=== PATIENT | female | born 1990 | race Caucasian/White ===

== ENCOUNTER 2020-02-04 01:33 | Inpatient (IN) | payer OTHER ==
[~2020-02-04] VITALS: Ht 160 cm; Wt 81.6 kg
[2020-02-04] MEDS ORDERED: FERR-252 PO (02:39)
[2020-02-04] MEDS ORDERED: LACTATED RINGERS 1,000 ML IV SCH (02:51)
[2020-02-04] MEDS ORDERED: CLINDAMYCIN 900 MG in DEXTROSE 5% 100 ML IV ONE (02:55)
[2020-02-04 03:23] LABS: APPEARANCE,URINE CLEAR (CLEAR); BILIRUBIN,URINE NEGATIVE (NEGATIVE); BLOOD, URINE 3+ (NEGATIVE); COLOR,URINE YELLOW (YELLOW); LEUKOCYTE ESTERASE ,URINE 2+ (NEGATIVE); NITRITE, URINE NEGATIVE (NEGATIVE); PH,URINE 6.5 (5.0-9.0); UGLUCOSE NEGATIVE (NEGATIVE)
[2020-02-04 03:32] LABS: BASOPHILS % (AUTO) 0.8 % (0.0-2.0); EOSINOPHILS % (AUTO) 0.5 % (0.0-4.0); HEMATOCRIT 30.7 % (36-48); HEMOGLOBIN 9.7 g/dL (12.0-16.0); LYMPHOCYTES # (AUTO) 1.2 K/uL (2.5-16.5); LYMPHOCYTES % (AUTO) 22.4 % (20.5-51.1); MEAN CORPUSCULAR HEMOGLOBIN 25 pg (27-31); MEAN CORPUSCULAR HGB CONC 32 g/dL (33-37); MEAN CORPUSCULAR VOLUME 79.2 fL (80-94); MONOCYTES # (AUTO) 0.3 K/uL (0.8-1.0); MONOCYTES % (AUTO) 6.3 % (1.7-9.3); NEUTROPHILS # (AUTO) 3.8 K/uL (1.8-7.7); PLATELET COUNT (AUTO) 83 K/uL (140-450); RED BLOOD CELL COUNT(AUTO) 3.88 MIL/uL (4.20-5.40); RED CELL DISTRIBUTION WIDTH 16.7 % (11.6-13.7); WHITE BLOOD COUNT (AUTO) 5.4 K/uL (4.8-10.8)
[2020-02-04 03:45] LABS: ALBUMIN 1.9 g/dL (3.4-5.0); ANION GAP 13.3 (8-16); CARBON DIOXIDE 23.5 mmol/L (21-32); CREATININE 0.8 mg/dL (0.6-1.3); POTASSIUM 3.8 mmol/L (3.5-5.1); TOTAL BILIRUBIN 0.4 mg/dL (0.0-1.0)
[2020-02-04 04:04] LABS: RBC,URINE 11-20 (MOD) /HPF (0-5)
[2020-02-04] MEDS ORDERED: CITRIC ACID/SODIUM CITRATE 30 ML UDC PO ONE (04:10)
[2020-02-04] MEDS ORDERED: CLINDAMYCIN 900 MG in DEXTROSE 5% 100 ML IV SCH (07:59)
[2020-02-04] MEDS ORDERED: MORPHINE SULFATE 10 MG/ML VIAL ONE (08:40)
[2020-02-04] MEDS ORDERED: MORPHINE SULFATE 10 MG/ML VIAL IVP PRN (08:40)
[2020-02-04 08:48] VITALS: BP 126/77
--- NOTE | 2020-02-04 08:52 | NUR ---
PATIENT HAS BEEN SCREENED AND CATEGORIZED LOW NUTRITION RISK. PATIENT WILL BE SEEN WITHIN 7 DAYS OF ADMISSION. 02/10/[address]
[2020-02-04 10:15] LABS: BASOPHILS % (AUTO) 0.5 % (0.0-2.0); EOSINOPHILS % (AUTO) 0.6 % (0.0-4.0); HEMOGLOBIN 9.4 g/dL (12.0-16.0); LYMPHOCYTES # (AUTO) 1.3 K/uL (2.5-16.5); LYMPHOCYTES % (AUTO) 22.4 % (20.5-51.1); MEAN CORPUSCULAR HEMOGLOBIN 25 pg (27-31); MEAN CORPUSCULAR HGB CONC 31 g/dL (33-37); MEAN CORPUSCULAR VOLUME 79.1 fL (80-94); MONOCYTES # (AUTO) 0.3 K/uL (0.8-1.0); MONOCYTES % (AUTO) 5.2 % (1.7-9.3); NEUTROPHILS # (AUTO) 4.2 K/uL (1.8-7.7); NEUTROPHILS % (AUTO) 71.3 % (42.2-75.2); RED CELL DISTRIBUTION WIDTH 16.7 % (11.6-13.7); WHITE BLOOD COUNT (AUTO) 5.9 K/uL (4.8-10.8)
[2020-02-04 10:35] LABS: PLATELET COUNT (AUTO) 87 K/uL (140-450)
[2020-02-04 10:38] LABS: ALBUMIN 1.8 g/dL (3.4-5.0); CARBON DIOXIDE 21.6 mmol/L (21-32); CREATININE 0.7 mg/dL (0.6-1.3); POTASSIUM 3.6 mmol/L (3.5-5.1); TOTAL BILIRUBIN 0.4 mg/dL (0.0-1.0)
[2020-02-04] MEDS ORDERED: MORPHINE PRES FREE 10 MG/10 ML AMP IV ONE ×2 (11:20→11:30)
[2020-02-04] MEDS ORDERED: CITRIC ACID/SODIUM CITRATE 30 ML UDC ONE (11:21)
[2020-02-04] MEDS ORDERED: ONDANSETRON 4 MG/2 ML VIAL ONE (11:30)
[2020-02-04] MEDS ORDERED: METOCLOPRAMIDE 10 MG/2 ML INJ VIAL ONE (11:30)
[2020-02-04] MEDS ORDERED: DEXAMETHASONE 4 MG/ML VIAL ONE (11:30)
[2020-02-04] MEDS ORDERED: OXYTOCIN 20 UNITS in LACTATED RINGERS 1,000 ML IV SCH (12:03)
[2020-02-04] MEDS ORDERED: TEMAZEPAM 15 MG CAP PO PRN (12:05)
[2020-02-04] MEDS ORDERED: KETOROLAC 30 MG/ML VIAL IVP PRN (12:05)
[2020-02-04] MEDS ORDERED: METHYLERGONOVINE 0.2 MG/ML AMP IM PRN (12:05)
[2020-02-04] MEDS ORDERED: IBUPROFEN 800 MG TAB PO PRN (12:05)
[2020-02-04] MEDS ORDERED: NALOXONE 0.4 MG/ML VIAL IVP PRN ×3 (16:40)
[2020-02-04] MEDS ORDERED: KETOROLAC 60 MG/2 ML VIAL IM PRN (16:45)
[2020-02-04] MEDS ORDERED: ONDANSETRON 4 MG/2 ML VIAL IVP PRN (16:45)
[2020-02-05] MEDS ORDERED: OXYTOCIN 20 UNITS/LR PREMIX 1,000 ML IV ONE (04:38)
[2020-02-05 06:40] LABS: HEMATOCRIT 21.7 % (36-48); MEAN CORPUSCULAR HGB CONC 32 g/dL (33-37); MONOCYTES # (AUTO) 0.5 K/uL (0.8-1.0); PLATELET COUNT (AUTO) 74 K/uL (140-450)
[2020-02-05 06:48] LABS: BASOPHILS % (AUTO) 0.5 % (0.0-2.0); EOSINOPHILS % (AUTO) 0.1 % (0.0-4.0); LYMPHOCYTES # (AUTO) 1.7 K/uL (2.5-16.5); LYMPHOCYTES % (AUTO) 24.5 % (20.5-51.1); MEAN CORPUSCULAR HEMOGLOBIN 25 pg (27-31); MEAN CORPUSCULAR VOLUME 79.3 fL (80-94); MONOCYTES % (AUTO) 7.1 % (1.7-9.3); NEUTROPHILS # (AUTO) 4.7 K/uL (1.8-7.7); NEUTROPHILS % (AUTO) 67.8 % (42.2-75.2); RED BLOOD CELL COUNT(AUTO) 2.74 MIL/uL (4.20-5.40); RED CELL DISTRIBUTION WIDTH 16.6 % (11.6-13.7)
[2020-02-05] MEDS: HYDROcodone/APAP 5/325 MG 1 TAB TAB PO PRN ×3 (08:20→22:46)
[2020-02-05] MEDS: SIMETHICONE 80 MG TAB.CHEW PO PRN ×2 (08:20→13:04)
[2020-02-05] MEDS: DOCUSATE SOD/SENNA 50/8.6 MG 1 TAB PO SCH (21:25)
[2020-02-06] MEDS: HYDROcodone/APAP 5/325 MG 1 TAB TAB PO PRN (04:49)
[2020-02-06] MEDS: SIMETHICONE 80 MG TAB.CHEW PO PRN ×3 (09:32→17:58)
[2020-02-06] MEDS: oxyCODONE/APAP 5/325 MG 1 TAB TAB PO PRN ×3 (12:34→22:09)
[2020-02-06] MEDS: SODIUM PHOSPHATE 118 ML ENEM RC SCH (14:47)
[2020-02-06] MEDS: DOCUSATE SOD/SENNA 50/8.6 MG 1 TAB PO SCH (21:04)
[2020-02-07] MEDS ORDERED: CAMERA MC ONE (01:29)
[2020-02-07] MEDS: oxyCODONE/APAP 5/325 MG 1 TAB TAB PO PRN ×2 (03:29→13:14)
[2020-02-07] MEDS: SODIUM PHOSPHATE 118 ML ENEM RC SCH (09:00)
== END 2020-02-07 14:11 | disposition home or self-care (01) | DRG 540 ==
LOC: OBSVTOIN 01:33 → MLD 01:33 → MFCC 11:40
PROVIDERS: ADMIT Obstetrics & Gynecology; ATTEND Obstetrics & Gynecology
PROC: 10D00Z1 Extraction of Products of Conception, Low, Open Approach (ICD-10-PCS; principal; 2020-02-04 07:45)
DX: O99.12 Other diseases of the blood and blood-forming organs and certain disorders involving the immune mechanism complicating childbirth (principal); D69.6 Thrombocytopenia, unspecified; O34.211 Maternal care for low transverse scar from previous cesarean delivery; Z37.0 Single live birth; Z3A.38 38 weeks gestation of pregnancy; Z88.0 Allergy status to penicillin
CPT/HCPCS: 36415; 80053; 81001; 85025; 86592; 86886; 86900; 86901; 87086; J1100; J2270; J2405; J2590; J2765; J3490; J7060; J7120

== ENCOUNTER 2020-04-20 22:45 | Emergency (ER) | payer OTHER ==
[~2020-04-20] VITALS: Ht 160 cm; Wt 72.6 kg
[~2020-04-20 22:45] MED LIST: FERR-252 PO
[2020-04-20 23:15] VITALS: BP 135/82
--- NOTE | 2020-04-20 23:22 | NUR ---
PT IN TENT
--- NOTE | 2020-04-20 23:44 | NUR ---
PT AMBULATED TO BED 7 WTIH STEADY GAIT
[2020-04-21 00:01] LABS: BASOPHILS % (AUTO) 0.3 % (0.0-2.0); EOSINOPHILS % (AUTO) 0.3 % (0.0-4.0); HEMATOCRIT 30.1 % (36-48); HEMOGLOBIN 9.2 g/dL (12.0-16.0); LYMPHOCYTES # (AUTO) 1.3 K/uL (2.5-16.5); LYMPHOCYTES % (AUTO) 11.2 % (20.5-51.1); MEAN CORPUSCULAR HEMOGLOBIN 22 pg (27-31); MEAN CORPUSCULAR HGB CONC 31 g/dL (33-37); MEAN CORPUSCULAR VOLUME 72.5 fL (80-94); MONOCYTES # (AUTO) 0.5 K/uL (0.8-1.0); MONOCYTES % (AUTO) 4.4 % (1.7-9.3); NEUTROPHILS # (AUTO) 9.4 K/uL (1.8-7.7); NEUTROPHILS % (AUTO) 83.8 % (42.2-75.2); PLATELET COUNT (AUTO) 270 K/uL (140-450); RED BLOOD CELL COUNT(AUTO) 4.15 MIL/uL (4.20-5.40); RED CELL DISTRIBUTION WIDTH 16.8 % (11.6-13.7); WHITE BLOOD COUNT (AUTO) 11.2 K/uL (4.8-10.8)
--- NOTE | 2020-04-21 00:20 | NUR ---
ULTRASOUND AT BEDSIDE
[2020-04-21 00:22] LABS: ANION GAP 13.4 (8-16); CREATININE 0.9 mg/dL (0.6-1.3); POTASSIUM 3.4 mmol/L (3.5-5.1)
[2020-04-21 00:23] LABS: ALBUMIN 3.9 g/dL (3.4-5.0); TOTAL BILIRUBIN 0.4 mg/dL (0.0-1.0)
--- NOTE | 2020-04-21 00:36 | NUR ---
PT STARTED HAVING RLQ PAIN THIS EVENING AND DEVELOPED A FEVER OF 101.5 AT HOME. DENIES N/V/D. NO REBOUND PAIN. ABD TENDER TO PALPATION. BED IN LOWEST POSITION AND SIDE RAIL UP X 1 ALLERGY - PCN NO MEDICAL HX
[2020-04-21] MEDS ORDERED: KETOROLAC 15 MG/ML VIAL IVP ONE (01:00)
--- NOTE | 2020-04-21 01:31 | NUR ---
PT STATES PAIN 3/10 AFTER MED, CURRENTLY AFEBRILE (TEMP 98.1)
[2020-04-21 02:30] LABS: APPEARANCE,URINE CLOUDY (CLEAR); BILIRUBIN,URINE NEGATIVE (NEGATIVE); BLOOD, URINE 2+ (NEGATIVE); COLOR,URINE YELLOW (YELLOW); LEUKOCYTE ESTERASE ,URINE NEGATIVE (NEGATIVE); NITRITE, URINE NEGATIVE (NEGATIVE); PH,URINE 7.5 (5.0-9.0); UGLUCOSE NEGATIVE (NEGATIVE)
--- NOTE | 2020-04-21 02:37 | NUR ---
CONSENT SIGNED FOR CT WITH IV CONTRAST
--- NOTE | 2020-04-21 03:03 | NUR ---
PT TRANSPORTED TO [facility]
--- NOTE | 2020-04-21 03:16 | NUR ---
PT RETURNED FROM CT
[2020-04-21 04:58] VITALS: BP 105/79
[2020-04-21 05:47] LABS: RBC,URINE 0-5 /HPF (0-5); WBC,URINE 0-5 /HPF (0-5)
== END 2020-04-21 04:58 | disposition home or self-care (01) ==
LOC: MED 22:45
DX: R10.31 Right lower quadrant pain (principal); N30.00 Acute cystitis without hematuria; R03.0 Elevated blood-pressure reading, without diagnosis of hypertension; R74.0 Nonspecific elevation of levels of transaminase and lactic acid dehydrogenase [LDH]; E87.6 Hypokalemia; E83.51 Hypocalcemia; R73.9 Hyperglycemia, unspecified; A41.9 Sepsis, unspecified organism; Z98.890 Other specified postprocedural states
CPT/HCPCS: 36415; 74177; 76705; 76856; 80053; 81001; 81025; 83690; 84703; 85025; 87086; 87186; 93976; 96374; 99285; J1885; Q0092; Q9967; 99283